=== PATIENT | male | born 1960 | race Caucasian/White ===

== ENCOUNTER 2017-01-21 10:58 | Emergency (ER) | payer OTHER ==
[~2017-01-21] VITALS: Ht 182.9 cm; Wt 104.5 kg
[~2017-01-21 10:58] MED LIST: INDO25CA PO; INDO50CA PO; ONDA8TAB10 PO; ZYL100 PO
[2017-01-21 11:05] VITALS: BP 150/92; PULSE 84; RESP 15; O2SAT 99
--- NOTE | 2017-01-21 12:08 | ED.REPORT ---
HPI-Extremity Problem Upper Date of Service Jan 21, 2017 ED Provider: Herman Joe PA-C Felix is a 56-year-old male, otherwise healthy presenting with chief complaint of left shoulder pain. Patient reports being at work 3 days ago when he slipped on a wet floor and fell on his left shoulder. He describes falling directly on the point of his left shoulder. Complains of pain over the scapula , reduced range of motion. Patient reports going to a walk-in clinic and being referred to emergency on Saturday, but he was not able to arrange transportation. Nursing Notes Stated Complaint: LEFT SHOULDER PAIN Chief Complaint: Extremity Trauma Nursing Notes Reviewed: Yes Allergies: Coded Allergies: No Known Allergies (Verified , 09/26/15) Scheduled Allopurinol (Allopurinol) 100 Mg Tablet 200 MG PO DAILY Indomethacin (Indomethacin) 25 Mg Capsule 25 MG PO DIRECTED 2 tabs TID for 2 days, 1 tab TID until symptoms resolved Indomethacin (Indomethacin) 50 Mg Capsule 50 MG PO TID Scheduled PRN Ondansetron ODT (Ondansetron ODT) 8 Mg Tab.rapdis 8 MG PO Q4H PRN PRN For Nausea General Time Seen by MD: 11:46 Chief Complaint Shoulder injury left Past Medical History Past Medical History h/o Alcohol abuse h/o Gout Admit for pancreatitis (ETOH induced) in 2007 Reports: Pancreatitis Past Surgical History Reports: Appendectomy Family History Non-contributory Smoking History Never Smoker Social History Sober prior to his mother passing a week ago according to patient 09/26/15 Alcohol Use: In recovery Drug Use: Denies drug use Other Social History: Smokeless tobacco, Good social support, Local resident Occupation single, lives with girlfriend Ambulatory Status Independent Review of Systems Review of Systems Note: Negative unless stated otherwise in history of present illness Physical Exam General: Well appearing, well developed, muscular, well nourished, no acute distress. Left shoulder: Normal to inspection, extremely tender over the scapula including the supraspinatus and infraspinatus muscles, minimal tenderness over acromion process. Nontender over clavicle. Abduction is limited to approximately 60 active, 80 passive. External rotation slightly limited, flexion limited to approximately 50. Internal rotation and extension are good. Left elbow: Normal to inspection, nontender, full range of motion. Head: Atraumatic, normocephalic. Eyes: No scleral icterus or injection. No discharge. Vision grossly intact. ENT: Voice clear, hearing grossly intact. Respiratory: No respiratory distress, no increased work of breathing. Speaks in complete sentences. Skin: Warm and dry. Neurological: Deltoid abduction limited by pain, wrist flexion and extension, finger flexion and abduction strength 5/5 B/L. Sensation to light touch intact over deltoid as well as first, third and fifth digits B/L. 5 out of 5 strength with thumb and small finger abduction as well as thumb and small finger pincher grasp. Psychological: alert and oriented. Speech appropriate, linear and logical. Behavior appropriate. Initial Vital Signs Vital Signs (First) Date Time Temp Pulse Resp B/P Pulse Ox O2 Delivery O2 Flow Rate FiO2 01/21/17 11:05 36.6 84 15 150/92 99 Room Air Elevated blood pressure Re-Eval/Medical Decision Med Decision/Clinical Course 56-year-old male presents with chief complaint of left shoulder pain after a fall 3 days ago at work in which she slipped on a wet floor and landed on his left shoulder. Complains of pain and reduced range of motion of the left shoulder. On physical examination the arm is neurovascularly intact, significantly reduced range of motion due to pain and exquisite tenderness over the scapula. Treatment is initiated with ketorolac, acetaminophen. Patient complains to his nurse that ketorolac is "weak" and threw the acetaminophen in the trash. X-ray reveals no fracture or dislocation. This most likely a contusion or there is a real possibility of a rotator cuff injury. Provided sling (which is declined), orthopedic referral, advised regarding [id number] analgesia. Patient requests prescription for opiate medication. This is declined. Advised regarding primary care follow-up, provided emergency return precautions. Patient verbalized understanding of, and consent to, the plan. Discharge & Departure Impression: Primary Impression: Left shoulder pain Chronicity: acute Qualified Code: M25.512 - Pain in left shoulder Disposition: Home Discharge Condition All VS Reviewed: Yes Condition: Stable Patient Instructions: Shoulder Sprain (ED) Additional Instructions: Evaluation for left shoulder pain in the emergency department include interview , physical examination and x-rays which are reassuring that there is no fracture in her shoulder. Based on the history and physical examination I suspect a rotator cuff injury. This will need to be seen by an orthopedic surgeon to be definitively diagnosed. I provided you with a referral to see Dr. David Elmore. Please contact her office to arrange follow-up as soon as possible. We have placed the arm sling for comfort. Suggest using this until you are evaluated by orthopedics. The pain is best treated with 800 mg of ibuprofen (Advil, Motrin) every 6 hours , or 1000 mg of acetaminophen (Tylenol) every 6 hours. These drugs can be taken at the same time for more severe pain. Return to emergency department for any new or worsening symptoms including increasing pain or development of a cold/numb hand. Referrals: David Elmore MD EDSupervising Provider for APC: Nacho Herbert DO copies to: David Elmore MD, Seth PA-C Jan 21, 2017 12:08
--- NOTE | 2017-01-21 12:55 | DRSVH ---
PROCEDURE: X-RAY LEFT SHOULDER, MINIMUM TWO VIEWS ([id number]) INDICATIONS: fall, shoulder pain TECHNIQUE: 3 views of the shoulder were acquired. COMPARISON: None. FINDINGS: Bones: No fractures or dislocations. No suspicious bony lesions. Visualized ribs appear intact. Soft tissues: No suspicious soft tissue calcifications. IMPRESSION: With attention to the scapula, no fracture or dislocation is seen. Dictated by: Robinson Nguyen M.D. on 01/21/2017 at 12:51 Approved by: Robinson Nguyen M.D. on 01/21/2017 at 12:53
== END 2017-01-21 13:40 | disposition home or self-care (01) ==
LOC: SED 10:58
DX: M25.512 Pain in left shoulder (principal); W01.0XXA Fall on same level from slipping, tripping and stumbling without subsequent striking against object, initial encounter; Y92.59 Other trade areas as the place of occurrence of the external cause; Y93.89 Activity, other specified; Y99.0 Civilian activity done for income or pay; I10 Essential (primary) hypertension; Z87.19 Personal history of other diseases of the digestive system
CPT/HCPCS: 73030; 96372; 99284; J1885